=== PATIENT | male | born 1965 | race Caucasian/White ===

== ENCOUNTER 2024-06-02 15:38 | Emergency (ER) | payer OTHER ==
[~2024-06-02] VITALS: Ht 182.9 cm; Wt 98.9 kg
[2024-06-02 16:12] VITALS: BP 165/96; PULSE 58; RESP 15; RESP 5; TEMP 98.3; O2SAT 97
[2024-06-02 16:34] VITALS: O2SAT 97
[2024-06-02] MEDS: KETOROLAC 30 MG/ML VIAL IM ONE (17:48)
[2024-06-02] MEDS ORDERED: BACI-418 TP (18:51)
[2024-06-02] MEDS: LIDOCAINE MPF 1% 10 MG/ML VIAL INJ ONE (19:20)
[2024-06-02] MEDS: BACITRACIN OINT 500 UNITS/GM PKT TP ONE (19:20)
== END 2024-06-02 19:22 | disposition home or self-care (01) ==
LOC: MED 15:38
DX: S61.432A Puncture wound without foreign body of left hand, initial encounter (principal); R03.0 Elevated blood-pressure reading, without diagnosis of hypertension; Z79.899 Other long term (current) drug therapy; W29.8XXA Contact with other powered hand tools and household machinery, initial encounter; Y92.89 Other specified places as the place of occurrence of the external cause; Y93.89 Activity, other specified; Y99.8 Other external cause status
CPT/HCPCS: 12001; 73130; 90471; 90715; 96372; 99284; J1885; J2003